=== PATIENT | male | born 1960 | race Caucasian/White ===

== ENCOUNTER 2021-08-17 13:52 | Inpatient (IN) | payer BC, OTHER ==
[~2021-08-17] VITALS: Ht 177.8 cm; Wt 93.6 kg
[2021-08-17] MEDS ORDERED: ACCU-CHEK COMFORT CURVE STRIP VI ONE (14:15)
[2021-08-17] MEDS ORDERED: SODIUM CHLORIDE 0.9% 1,000 ML IV ONE (14:30)
[2021-08-17 14:32] LABS: Basophils # (auto) 0.2 10 ^3/uL (0-0.2); Basophils % (auto) 1.9 % (0.0-2.0); Eosinophils # (auto) 0.3 10 ^3/uL (0-0.8); Eosinophils % (auto) 2.8 % (0.0-7.0); Hematocrit 33.1 % (41.0-53.0); Hemoglobin 11.2 g/dL (13.5-17.5); Lymphocytes # (auto) 1.5 10 ^3/uL (0.4-5.4); Lymphocytes % (auto) 15.7 % (10.0-50.0); Mean Corpuscular Hgb Conc. 33.7 g/dL (32.0-36.0); Monocytes # (auto) 0.5 10 ^3/uL (0-1.3); Monocytes % (auto) 5.4 % (0.0-12.0); Neutrophils % (auto) 74.2 % (37.0-80.0); Nucleated Red Blood Cells % 0.1 %; Red Blood Cells 3.85 10^6/uL (4.5-5.90); White Blood Cell 9.4 10^3/uL (4.4-10.8)
[2021-08-17 14:47] LABS: Albumin 2.8 g/dL (3.4-5.0); Calcium 8.6 mg/dL (8.5-10.1); Potassium 4.4 mmol/L (3.5-5.1)
[2021-08-17 14:50] LABS: BUN/Creatinine Ratio 19.4; Bilirubin, Total 0.2 mg/dL (0.2-1.0); Total Protein 7.7 g/dL (6.4-8.2)
[2021-08-17] MEDS ORDERED: CLINDAMYCIN 600MG IV 50 ML IV ONE (16:45)
[2021-08-17] MEDS ORDERED: cefTRIAXone 1GM/50ML D5W 50 ML IV ONE (16:45)
[2021-08-17] MEDS ORDERED: LABETALOL HCL 5 MG/ML 4ML SYRINGE IV ONE (16:45)
[2021-08-17] MEDS ORDERED: cloNIDine HCL 0.1 MG TAB PO ONE (18:45)
[2021-08-17] MEDS ORDERED: ONDANSETRON HCL 4 MG/2 ML VIAL IV PRN (19:00)
[2021-08-17] MEDS ORDERED: ACETAMINOPHEN 500 MG TAB PO PRN (19:00)
[2021-08-17] MEDS ORDERED: DOCUSATE CALCIUM 240 MG CAP PO PRN (19:00)
[2021-08-17] MEDS ORDERED: NITROGLYCERIN 0.4 MG SL TAB SL PRN (19:00)
[2021-08-17] MEDS ORDERED: LORazepam 0.5 MG TAB PO PRN (19:00)
[2021-08-17] MEDS ORDERED: DEXTROSE (50%) 50ML SYRG IV PRN (19:00)
[2021-08-17] MEDS ORDERED: MORPHINE SULFATE INJ 2 MG/ml SYRG IV PRN ×2 (19:00)
[2021-08-17] MEDS ORDERED: LABETALOL HCL 5 MG/ML 4ML SYRINGE IV PRN (19:00)
[2021-08-17] MEDS: InsuLIN REG 1unit/0.01ml Soln (100units/ml) SC SCH (20:49)
[2021-08-17] MEDS: ACCU-CHEK COMFORT CURVE STRIP VI SCH (20:49)
[2021-08-17] MEDS: SODIUM CHLORIDE 0.9% 1,000 ML IV SCH (20:55)
[2021-08-17 21:50] LABS: Urine Bacteria NONE SEEN /hpf (None Seen); Urine Blood Negative /uL (Negative); Urine Specific Gravity 1.014 (1.001-1.035); Urine WBC <1 /hpf (0 - 3)
[2021-08-17] MEDS: CLINDAMYCIN 600MG IV 50 ML IV SCH (22:02)
[2021-08-18] MEDS: ACCU-CHEK COMFORT CURVE STRIP VI SCH ×5 (00:30→17:15)
[2021-08-18] MEDS: InsuLIN REG 1unit/0.01ml Soln (100units/ml) SC SCH ×5 (00:30→17:19)
[2021-08-18] MEDS: hydrALAZINE HCL 20 MG/ML VL IV PRN (04:11)
[2021-08-18 05:28] LABS: Basophils # (auto) 0.1 10 ^3/uL (0-0.2); Basophils % (auto) 1.7 % (0.0-2.0); Eosinophils # (auto) 0.3 10 ^3/uL (0-0.8); Eosinophils % (auto) 2.9 % (0.0-7.0); Hematocrit 33.8 % (41.0-53.0); Hemoglobin 11.5 g/dL (13.5-17.5); Lymphocytes # (auto) 2.2 10 ^3/uL (0.4-5.4); Lymphocytes % (auto) 24.8 % (10.0-50.0); Mean Corpuscular Hemoglobin 28.8 pg (28.0-32.0); Mean Corpuscular Volume 84.8 fL (80.0-100.0); Monocytes # (auto) 0.7 10 ^3/uL (0-1.3); Monocytes % (auto) 7.8 % (0.0-12.0); Neutrophils # (auto) 5.5 10 ^3/uL (1.6-8.6); Neutrophils % (auto) 62.8 % (37.0-80.0); Red Blood Cells 3.99 10^6/uL (4.5-5.90); White Blood Cell 8.7 10^3/uL (4.4-10.8)
[2021-08-18 05:36] LABS: INR 1.05 (0.9-1.15)
[2021-08-18 05:44] LABS: Albumin 2.9 g/dL (3.4-5.0); Calcium 8.9 mg/dL (8.5-10.1); Potassium 4.4 mmol/L (3.5-5.1)
[2021-08-18 05:50] LABS: Bilirubin, Total 0.4 mg/dL (0.2-1.0); Total Protein 7.8 g/dL (6.4-8.2)
[2021-08-18] MEDS: CLINDAMYCIN 600MG IV 50 ML IV SCH ×2 (06:15→14:27)
[2021-08-18 06:23] LABS: BUN/Creatinine Ratio 20.3
[2021-08-18] MEDS: SODIUM CHLORIDE 0.9% 1,000 ML IV SCH ×2 (08:20→11:14)
[2021-08-18] MEDS ORDERED: IOHEXOL 350 MG/ML 100ML IJ ONE (09:25)
[2021-08-18] MEDS ORDERED: LABETALOL HCL 5 MG/ML ML 20ML VIAL IV PRN (09:30)
[2021-08-18] MEDS ORDERED: INSLANTI SC (09:44)
[2021-08-18] MEDS ORDERED: EMPA1TAB PO (09:44)
[2021-08-18] MEDS ORDERED: RIVA2.5T PO (09:44)
[2021-08-18] MEDS ORDERED: ATOR80TA PO (09:44)
[2021-08-18] MEDS ORDERED: GLIP5TAB12 PO (09:44)
[2021-08-18] MEDS ORDERED: ATEN100T PO (09:44)
[2021-08-18] MEDS ORDERED: ASPI1TAB20 PO (09:44)
[2021-08-18] MEDS ORDERED: AMOX-277 PO (09:44)
[2021-08-18] MEDS ORDERED: METF-372 PO (09:44)
[2021-08-18] MEDS ORDERED: CLIN300C8 PO (09:44)
[2021-08-18] MEDS ORDERED: LISI40TA11 PO (09:44)
[2021-08-18 09:55] LABS: Cholesterol 131 mg/dL (< 200)
[2021-08-18 09:56] LABS: Folate (Folic Acid) 23.12 ng/mL (5.38-24)
[2021-08-18 09:58] LABS: Creatine Kinase IFCC 95 U/L (39-308); HDL Cholesterol 32 mg/dL (40-59); LDL Cholesterol 89 mg/dL (< 100); Triglycerides 102 mg/dL (< 150)
[2021-08-18] MEDS ORDERED: ASPirin 81 mg TAB PO SCH (10:00)
[2021-08-18] MEDS ORDERED: CARVEDILOL 3.125 MG TAB PO SCH ×2 (10:00→10:15)
[2021-08-18] MEDS ORDERED: LOSARTAN POTASSIUM 50 MG TAB PO SCH (10:00)
[2021-08-18] MEDS ORDERED: LORazepam 2MG/ML-1ML VIAL IV PRN (10:00)
[2021-08-18] MEDS ORDERED: FAMOTIDINE 20 MG TAB PO SCH (10:00)
[2021-08-18] MEDS ORDERED: PANTOPRAZOLE 40 MG TAB PO SCH (10:00)
[2021-08-18] MEDS ORDERED: ENOXAPARIN SOD 40 MG/0.4 ML SYRINGE SC SCH (10:00)
[2021-08-18 10:20] LABS: % Iron Saturation 14.7 % (20-55)
[2021-08-18 10:23] LABS: Free T3 3.17 pg/mL (2.3-4.2); Free T4 (Free Thyroxine) 1.23 ng/dL (0.89-1.76)
[2021-08-18] MEDS: ASPirin 81 mg TAB PO SCH (11:13)
[2021-08-18] MEDS: levoFLOXacin 500MG 100 ML IV SCH (11:13)
[2021-08-18] MEDS: CARVEDILOL 12.5 MG TAB PO SCH (11:16)
[2021-08-18] MEDS ORDERED: LISINOPRIL 20 MG TAB PO ONE (16:30)
[2021-08-18] MEDS ORDERED: ENOXAPARIN SOD 40 MG/0.4 ML SYRINGE SC ONE (16:30)
[2021-08-18] MEDS ORDERED: cefTRIAXone 1GM/50ML D5W 50 ML IV SCH (17:00)
[2021-08-18 17:42] VITALS: BP 124/65
[2021-08-18] MEDS ORDERED: EMPAGLIFLOZIN 10 MG PO SCH (18:00)
[2021-08-18] MEDS ORDERED: PATIENTS OWN MEDICATION (Atorvastatin Calcium (Lipitor) 1 TAB) PO SCH (18:00)
[2021-08-18] MEDS ORDERED: PATIENTS OWN MEDICATION (Atenolol 100 MG) PO SCH (18:00)
[2021-08-18 20:00] VITALS: BP 155/65
[2021-08-18 22:00] VITALS: BP 175/86
[2021-08-18] MEDS ORDERED: ATORVASTATIN 20 MG TAB PO SCH (22:00)
[2021-08-19] MEDS: CLINDAMYCIN 600MG IV 50 ML IV SCH ×4 (00:08→21:57)
[2021-08-19] MEDS: CARVEDILOL 12.5 MG TAB PO SCH (00:12)
[2021-08-19] MEDS: ATORVASTATIN 20 MG TAB PO SCH ×2 (00:13→21:57)
[2021-08-19] MEDS: ACCU-CHEK COMFORT CURVE STRIP VI SCH ×5 (00:13→22:09)
[2021-08-19] MEDS: SODIUM CHLORIDE 0.9% 1,000 ML IV SCH ×2 (00:14→12:06)
[2021-08-19] MEDS: InsuLIN REG 1unit/0.01ml Soln (100units/ml) SC SCH ×5 (00:16→22:07)
[2021-08-19 04:42] LABS: Basophils # (auto) 0.2 10 ^3/uL (0-0.2); Basophils % (auto) 1.8 % (0.0-2.0); Eosinophils # (auto) 0.3 10 ^3/uL (0-0.8); Eosinophils % (auto) 3.2 % (0.0-7.0); Hematocrit 34.2 % (41.0-53.0); Hemoglobin 11.6 g/dL (13.5-17.5); Lymphocytes % (auto) 21.1 % (10.0-50.0); Mean Corpuscular Hemoglobin 28.8 pg (28.0-32.0); Mean Corpuscular Hgb Conc. 33.8 g/dL (32.0-36.0); Mean Corpuscular Volume 85.1 fL (80.0-100.0); Monocytes # (auto) 0.6 10 ^3/uL (0-1.3); Monocytes % (auto) 6.5 % (0.0-12.0); Neutrophils # (auto) 6.3 10 ^3/uL (1.6-8.6); Neutrophils % (auto) 67.4 % (37.0-80.0); Nucleated Red Blood Cells % 0.1 %; Red Blood Cells 4.02 10^6/uL (4.5-5.90); Red Cell Distribution Width 15.2 % (11.8-14.3); White Blood Cell 9.3 10^3/uL (4.4-10.8)
[2021-08-19 05:00] VITALS: BP 172/74
[2021-08-19 05:00] LABS: Albumin 2.9 g/dL (3.4-5.0); Calcium 8.8 mg/dL (8.5-10.1); Potassium 3.9 mmol/L (3.5-5.1)
[2021-08-19 05:02] LABS: Bilirubin, Total 0.4 mg/dL (0.2-1.0); Total Protein 7.6 g/dL (6.4-8.2)
[2021-08-19] MEDS ORDERED: ADENOSINE 78 MG in GIVE UN-DILUTED 0 ML IV ONE (08:30)
[2021-08-19 09:00] VITALS: BP 165/74
[2021-08-19] MEDS: hydrALAZINE HCL 20 MG/ML VL IV PRN (09:22)
[2021-08-19] MEDS: INSULIN LANTUS (GLARGINE) 1 /0.01ml (100units/ml) SC SCH ×2 (10:00→12:04)
[2021-08-19] MEDS: ENOXAPARIN SOD 40 MG/0.4 ML SYRINGE SC SCH (10:00)
[2021-08-19] MEDS ORDERED: PATIENTS OWN MEDICATION (Lisinopril 1 TAB) PO SCH (10:00)
[2021-08-19 10:11] VITALS: BP 136/41
[2021-08-19] MEDS: levoFLOXacin 500MG 100 ML IV SCH (11:56)
[2021-08-19] MEDS: ASPirin 81 mg TAB PO SCH (11:56)
[2021-08-19] MEDS: LISINOPRIL 20 MG TAB PO SCH (11:59)
[2021-08-19] MEDS: METOPROLOL TARTRATE 50 MG TAB PO SCH ×2 (12:00→21:58)
[2021-08-19] MEDS: amLODIPine BESYLATE 5 MG TAB PO SCH (12:01)
[2021-08-19 13:00] VITALS: BP 154/70
[2021-08-19] MEDS ORDERED: MIDAZOLAM HCL 2MG/2ML 2ml VIAL (1mg/ml) IV ONE (13:30)
[2021-08-19] MEDS ORDERED: fentaNYL CITRATE 100 MCG/2 ML VL IV ONE (13:30)
[2021-08-19] MEDS ORDERED: LIDOCAINE VISCOUS 2% 15ML UD MT ONE (14:00)
[2021-08-19] MEDS ORDERED: ONDANSETRON HCL 4 MG/2 ML VIAL ONE (14:37)
[2021-08-19 15:02] LABS: Alcohol, Urine < 3.0 mg/dL (0-10); Amphetamine Screen, Urine NEGATIVE (NEGATIVE); Barbiturate Scree,Urine NEGATIVE (NEGATIVE); Benzodiazephine Screen, Urine NEGATIVE (NEGATIVE); Cannabinoid Screen, Urine NEGATIVE (NEGATIVE); Cocaine Screen, Urine NEGATIVE (NEGATIVE); Opiate Scree,Urine NEGATIVE (NEGATIVE); Phencyclidine Screen, Urine NEGATIVE (NEGATIVE)
[2021-08-19 16:30] VITALS: BP 134/84
[2021-08-19 19:38] LABS: INR 1.16 (0.9-1.15)
[2021-08-19 22:00] VITALS: BP 153/51
[2021-08-19] MEDS: DAKINS QUARTER STR 0.125% (NaHypochlorite) 473 ML TOPICAL SOL TOP SCH (22:00)
[2021-08-20] MEDS: SODIUM CHLORIDE 0.9% 1,000 ML IV SCH ×2 (01:30→16:10)
[2021-08-20 05:00] VITALS: BP 147/63
[2021-08-20] MEDS: InsuLIN REG 1unit/0.01ml Soln (100units/ml) SC SCH ×4 (06:25→22:23)
[2021-08-20] MEDS: ACCU-CHEK COMFORT CURVE STRIP VI SCH ×4 (06:28→22:23)
[2021-08-20] MEDS: CLINDAMYCIN 600MG IV 50 ML IV SCH ×3 (06:28→22:17)
[2021-08-20 09:00] VITALS: BP 152/55
[2021-08-20] MEDS: METOPROLOL TARTRATE 50 MG TAB PO SCH ×2 (09:45→22:18)
[2021-08-20] MEDS: ASPirin 81 mg TAB PO SCH (09:46)
[2021-08-20] MEDS: ENOXAPARIN SOD 40 MG/0.4 ML SYRINGE SC SCH (09:46)
[2021-08-20] MEDS: LISINOPRIL 20 MG TAB PO SCH (09:47)
[2021-08-20] MEDS: amLODIPine BESYLATE 5 MG TAB PO SCH (09:48)
[2021-08-20] MEDS: levoFLOXacin 500MG 100 ML IV SCH (09:48)
[2021-08-20] MEDS: DAKINS QUARTER STR 0.125% (NaHypochlorite) 473 ML TOPICAL SOL TOP SCH ×2 (10:00→22:00)
[2021-08-20 13:00] VITALS: BP 144/48
[2021-08-20] MEDS: INSULIN LANTUS (GLARGINE) 1 /0.01ml (100units/ml) SC SCH (13:04)
[2021-08-20] MEDS ORDERED: LIDOCAINE 1% (LOCAL ANESTH.) PF 5ml SDV ID ONE (16:15)
[2021-08-20 17:00] VITALS: BP 138/35
[2021-08-20 22:00] VITALS: BP 128/84
[2021-08-20] MEDS: ATORVASTATIN 20 MG TAB PO SCH (22:17)
[2021-08-20] MEDS: SODIUM CHLOR 0.9% PF (SALINE LOCK) 10ML VIAL/SYR IV SCH (22:24)
[2021-08-21] MEDS: SODIUM CHLORIDE 0.9% 1,000 ML IV SCH ×2 (04:10→17:30)
[2021-08-21 05:00] VITALS: BP 129/62
[2021-08-21] MEDS: InsuLIN REG 1unit/0.01ml Soln (100units/ml) SC SCH ×4 (06:24→22:09)
[2021-08-21] MEDS: ACCU-CHEK COMFORT CURVE STRIP VI SCH ×4 (06:25→21:55)
[2021-08-21] MEDS: CLINDAMYCIN 600MG IV 50 ML IV SCH ×3 (06:29→21:55)
[2021-08-21 09:00] VITALS: BP 138/41
[2021-08-21] MEDS: DAKINS QUARTER STR 0.125% (NaHypochlorite) 473 ML TOPICAL SOL TOP SCH ×2 (10:00→21:55)
[2021-08-21] MEDS: INSULIN LANTUS (GLARGINE) 1 /0.01ml (100units/ml) SC SCH (10:00)
[2021-08-21] MEDS: levoFLOXacin 500MG 100 ML IV SCH (10:20)
[2021-08-21] MEDS: ASPirin 81 mg TAB PO SCH (10:20)
[2021-08-21] MEDS: SODIUM CHLOR 0.9% PF (SALINE LOCK) 10ML VIAL/SYR IV SCH ×2 (10:20→21:54)
[2021-08-21] MEDS: ENOXAPARIN SOD 40 MG/0.4 ML SYRINGE SC SCH (10:20)
[2021-08-21] MEDS: LISINOPRIL 20 MG TAB PO SCH (10:21)
[2021-08-21] MEDS: amLODIPine BESYLATE 5 MG TAB PO SCH (10:21)
[2021-08-21] MEDS: METOPROLOL TARTRATE 50 MG TAB PO SCH ×2 (10:22→21:54)
[2021-08-21] MEDS ORDERED: METO25TA5 PO (12:34)
[2021-08-21] MEDS ORDERED: AMLO-496 PO (12:34)
[2021-08-21 13:00] VITALS: BP 134/47
[2021-08-21 16:50] VITALS: BP 122/45
[2021-08-21] MEDS: ATORVASTATIN 20 MG TAB PO SCH (21:54)
[2021-08-21] MEDS: RIVAROXABAN 10 MG TAB PO SCH (21:55)
[2021-08-21 22:00] VITALS: BP 141/63
[2021-08-22 05:00] VITALS: BP 134/37
[2021-08-22] MEDS: SODIUM CHLORIDE 0.9% 1,000 ML IV SCH (05:24)
[2021-08-22] MEDS: CLINDAMYCIN 600MG IV 50 ML IV SCH (05:24)
[2021-08-22] MEDS: ACCU-CHEK COMFORT CURVE STRIP VI SCH ×2 (06:20→11:30)
[2021-08-22] MEDS: InsuLIN REG 1unit/0.01ml Soln (100units/ml) SC SCH ×2 (06:21→12:38)
[2021-08-22 09:07] VITALS: BP 148/69
[2021-08-22] MEDS: LISINOPRIL 20 MG TAB PO SCH (09:31)
[2021-08-22] MEDS: levoFLOXacin 500MG 100 ML IV SCH (09:31)
[2021-08-22] MEDS: amLODIPine BESYLATE 5 MG TAB PO SCH (09:32)
[2021-08-22] MEDS: ASPirin 81 mg TAB PO SCH (09:32)
[2021-08-22] MEDS: RIVAROXABAN 10 MG TAB PO SCH (09:32)
[2021-08-22] MEDS: SODIUM CHLOR 0.9% PF (SALINE LOCK) 10ML VIAL/SYR IV SCH (09:32)
[2021-08-22] MEDS: DAKINS QUARTER STR 0.125% (NaHypochlorite) 473 ML TOPICAL SOL TOP SCH (09:33)
[2021-08-22] MEDS: METOPROLOL TARTRATE 50 MG TAB PO SCH (09:34)
[2021-08-22] MEDS ORDERED: CEFTRIAXONE SODIUM 2 GM in D5W 5% 50 ML IV ONE (11:15)
[2021-08-22 12:56] VITALS: BP 135/62
[2021-08-22] MEDS: INSULIN LANTUS (GLARGINE) 1 /0.01ml (100units/ml) SC SCH (12:58)
[2021-08-22 13:00] VITALS: BP 135/50
[2021-08-23] MEDS ORDERED: CEFTRIAXONE SODIUM 2 GM in D5W 5% 50 ML IV SCH (10:00)
== END 2021-08-22 16:18 | disposition home health service (06) | DRG 69 ==
LOC: EDBD 13:52 → ER 13:52 → TELE 18:57 → TELE-WESTW 08-18 17:48
PROVIDERS: ADMIT Family Medicine; ATTEND Family Medicine
PROC: 02H633Z Insertion of Infusion Device into Right Atrium, Percutaneous Approach (ICD-10-PCS; principal; 2021-08-20)
DX: G45.9 Transient cerebral ischemic attack, unspecified (principal); I16.1 Hypertensive emergency; D63.8 Anemia in other chronic diseases classified elsewhere; L97.519 Non-pressure chronic ulcer of other part of right foot with unspecified severity; E11.42 Type 2 diabetes mellitus with diabetic polyneuropathy; E11.621 Type 2 diabetes mellitus with foot ulcer; E11.51 Type 2 diabetes mellitus with diabetic peripheral angiopathy without gangrene; D64.9 Anemia, unspecified; E11.65 Type 2 diabetes mellitus with hyperglycemia; E66.9 Obesity, unspecified; E78.00 Pure hypercholesterolemia, unspecified; E78.5 Hyperlipidemia, unspecified; Z20.822 Contact with and (suspected) exposure to COVID-19; I10 Essential (primary) hypertension; I16.0 Hypertensive urgency; J32.0 Chronic maxillary sinusitis; L03.031 Cellulitis of right toe; Z79.4 Long term (current) use of insulin; Z79.82 Long term (current) use of aspirin; Z79.899 Other long term (current) drug therapy; Z82.49 Family history of ischemic heart disease and other diseases of the circulatory system; Z83.3 Family history of diabetes mellitus; Z87.11 Personal history of peptic ulcer disease; Z68.29 Body mass index [BMI] 29.0-29.9, adult
CPT/HCPCS: 36415; 36569; 70450; 70545; 70551; 71045; 71275; 73718; 78452; 80053; 80061; 80307; 81001; 82550; 82746; 82962; 83036; 83540; 83550; 83880; 84439; 84443; 84481; 84484; 85025; 85379; 85610; 85652; 87205; 93005; 93017; 93306; 93312; 93886; 93970; 95819; 96361; 96365; 96366; 96367; 96375; 96376; 99152; 99291; G0378; J0153; J0696; J1815; J1956; J2250; J2405; J3490; J7060